=== PATIENT | male | born 1955 | race Hispanic/Latino ===

== ENCOUNTER 2024-04-20 11:03 | Day surgery (SDC) | payer OTHER ==
[2024-04-20] VITALS (10 sets, daily range): BP systolic 100–145; BP diastolic 50–85; PULSE 60–67; RESP 14–20; TEMP 97.1–97.6
[~2024-04-20] VITALS: Ht 162.6 cm; Wt 108.9 kg
[2024-04-20] MEDS ORDERED: ATOR10 PO (12:07)
[2024-04-20] MEDS ORDERED: MULT-1367 PO (12:07)
[2024-04-20] MEDS ORDERED: RAMI5CAP72 PO (12:07)
[2024-04-20] MEDS ORDERED: AMIO200T68 PO (12:07)
[2024-04-20] MEDS ORDERED: CARV12.511 PO (12:07)
[2024-04-20] MEDS ORDERED: ASPI-1005 PO (12:07)
[2024-04-20] MEDS ORDERED: TORS5TAB12 PO (12:07)
[2024-04-20] MEDS ORDERED: OMEP40CA21 PO (12:07)
[2024-04-20] MEDS ORDERED: FAMO20TA8 PO (12:07)
[2024-04-20] MEDS: 0.9%NACL 1000ML 1,000 ML IV ONE (12:11)
[2024-04-20] MEDS ORDERED: proPOFol 10 MG/ML 20ML VIAL IV ONE (14:23)
== END 2024-04-20 15:45 | disposition home or self-care (01) ==
LOC: DAH 11:03 → ENDO 11:03
PROVIDERS: ATTEND Internal Medicine Gastroenterology
DX: R10.13 Epigastric pain (principal); K29.50 Unspecified chronic gastritis without bleeding; R93.3 Abnormal findings on diagnostic imaging of other parts of digestive tract; K21.00 Gastro-esophageal reflux disease with esophagitis, without bleeding; R14.0 Abdominal distension (gaseous); Q44.6 Cystic disease of liver; K29.70 Gastritis, unspecified, without bleeding; I10 Essential (primary) hypertension; I25.10 Atherosclerotic heart disease of native coronary artery without angina pectoris; E78.00 Pure hypercholesterolemia, unspecified; K76.0 Fatty (change of) liver, not elsewhere classified; R59.0 Localized enlarged lymph nodes; N20.0 Calculus of kidney; G47.30 Sleep apnea, unspecified; I25.2 Old myocardial infarction; Z90.49 Acquired absence of other specified parts of digestive tract; Z98.890 Other specified postprocedural states
CPT/HCPCS: 43239; J7030; J2704; A4620; A4215 ×2; A4223; A4222; A4221; A4663; A4606; J3490